=== PATIENT | female | born 2000 | race Two or more races ===

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

== ENCOUNTER 2024-07-20 11:51 | Emergency (ER) | payer OTHER ==
[~2024-07-20] VITALS: Ht 154.9 cm; Wt 63.5 kg
[2024-07-20] MEDS ORDERED: KETOROLAC TROMETHAMINE 60 MG VIAL IM STA (13:55)
[2024-07-20 14:33] LABS: HEMATOCRIT 39.8 % (36.0-45.00); HEMOGLOBIN 13.7 g/dL (12.0-15.00); MEAN CELL VOLUME 82.6 fL (80.00-100.00); MEAN CORPUSCULAR HEMOGLOBIN 28.5 pg (27.00-32.0); MEAN CORPUSCULAR HGB CONC 34.5 g/dl (32.0-36.0); PLATELET COUNT 280 K/uL (150-450); RED BLOOD COUNT 4.82 M/uL (4.00-6.00); RED CELL DISTRIBUTION WIDTH 13.3 % (11.5-14.5)
== END 2024-07-20 16:03 | disposition home or self-care (01) ==
LOC: ER 11:52
PROVIDERS: General Practice
DX: R51.9 Headache, unspecified (principal)